=== PATIENT | female | born 1955 | race Caucasian/White ===

== ENCOUNTER 2019-03-16 11:34 | Emergency (ER) | payer OTHER ==
--- NOTE | 2019-03-16 12:24 | EDPHY ---
H & P Time Seen by Provider: 03/16/19 11:57 HPI/ROS: CHIEF COMPLAINT: Dizziness HISTORY OF PRESENT ILLNESS: 63-year-old woman presents with 3 episodes of dizziness since this past weekend on Thursday. She was helping her daughter at her daughter's esthetic clinic and sitting at a desk on Thursday when suddenly everything started spinning, she fell off the chair and felt like she might have "blacked out" for a second or 2 and injured her right side of her face. No headache or neck pain. No seizure activity. She felt better on Thursday and Thursday and then yesterday evening at her daughter's esthetic clinic which she bent over to plug in some left ups she had same sensation of sudden spinning and she fell on her left side this time. There is a 2nd episode later that evening at home each 1 lasted about 30 min and associated with nausea and some vomiting. Today she has not had any recurrent symptoms. She feels little bit weaker. Denies headache or neck pain or being off balance or any trouble with speech thought strength or sensation. REVIEW OF SYSTEMS: Eye: no change in vision ENT: no sore throat, has had ringing in her left ear for the several years now unchanged Cardiac: No chest pain Pulmonary: no cough or SOB Abdomen: No diarrhea or abdominal pain Musculoskeletal: No neck pain Skin: no rash Neuro: no headache Constitutional: no fever : no urinary symptoms A comprehensive 10 point review of systems is otherwise negative aside from elements mentioned in the history of present illness. PAST MEDICAL HISTORY: Includes diabetes and tonsillectomy Social history: Lives in [facility] here visiting her daughter General Appearance: Alert and conversant, cooperative. Eyes: No scleral icterus. Extraocular motion intact and no nystagmus now. ENT, Mouth: Normal mucous membranes. No tongue laceration or abrasion and normal tympanic membranes. Respiratory: Normal respiratory effort, breath sounds equal, lungs are clear to auscultation. Cardiovascular: Regular rate and rhythm. Gastrointestinal: Abdomen is soft and non tender. Neurological: Alert, face symmetric, normal motor and sensory in extremities. Normal [id number] bilaterally and no pronator drift, speech fluent, ambulatory. Not tremulous. Skin: Abrasion to the right forehead. She does have some skin changes below her chin from a facial treatment given to her by her daughter over the weekend. Musculoskeletal: No peripheral edema. No leg tenderness. Psychiatric: Not agitated. Emergency Department course/MDM: Likely acute peripheral vertigo episodes which are currently not symptomatic. CBC and chemistry because of metformin, EKG. Patient was concerned about lactic acidosis on metformin, I think that is less likely. I think malignant dysrhythmia or seizure or vascular dissection or cerebellar stroke are all unlikely. Normal EKG, not acidotic. Patient was warned to avoid driving or other potentially risk activities until she has been asymptomatic for several days. Does not have a severe headache, does not have clinical signs of skull fracture. Neurologic exam is normal, not anticoagulated. I think it is unlikely she is having intracranial bleed or skull fracture, subdural or epidural. Smoking Status: Former smoker Constitutional: Initial Vital Signs Temperature (C) 36.8 C 03/16/19 11:45 Heart Rate 69 03/16/19 11:45 Respiratory Rate 16 03/16/19 11:45 Blood Pressure 159/74 H 03/16/19 11:45 O2 Sat (%) 95 03/16/19 11:45 O2 Delivery Mode Room Air Allergies/Adverse Reactions: No Known Allergies Allergy (Unverified 03/16/19 11:44) Home Medications: Medication Instructions Recorded Metformin HCl 03/16/19 Multivitamin 03/16/19 Medical Decision Making - Diagnostics EKG Interpretation: 12-lead EKG interpreted by me; official reading is in computer system. My interpretation is sinus rhythm rate 68 with low precordial voltage otherwise negative Differential Diagnosis: Differential diagnosis considered for dizziness including but not limited to peripheral and central causes of vertigo, orthostatic causes including dehydration, and blood loss. - Data Points Laboratory Results: Laboratory Results 03/16/19 12:50 03/16/19 12:50 03/16/19 03/16/19 12:50 12:50 WBC 8.61 10^3/uL 10^3/uL (3.80-9.50) RBC 5.08 10^6/uL 10^6/uL (4.18-5.33) Hgb 14.3 g/dL g/dL (12.6-16.3) Hct 43.0 % % (38.0-47.0) MCV 84.6 fL fL (81.5-99.8) MCH 28.1 pg pg (27.9-34.1) MCHC 33.3 g/dL g/dL (32.4-36.7) RDW 13.2 % % (11.5-15.2) Plt Count 267 10^3/uL 10^3/uL (150-400) MPV 9.8 fL fL (8.7-11.7) Neut % (Auto) 65.4 % % (39.3-74.2) Lymph % (Auto) 25.1 % % (15.0-45.0) Rosebud % (Auto) 6.6 % % (4.5-13.0) Eos % (Auto) 2.0 % % (0.6-7.6) Baso % (Auto) 0.6 % % (0.3-1.7) Nucleat RBC Rel Count 0.0 % % (0.0-0.2) Absolute Neuts (auto) 5.63 10^3/uL 10^3/uL (1.70-6.50) Absolute Lymphs (auto) 2.16 10^3/uL 10^3/uL (1.00-3.00) Absolute Monos (auto) 0.57 10^3/uL 10^3/uL (0.30-0.80) Absolute Eos (auto) 0.17 10^3/uL 10^3/uL (0.03-0.40) Absolute Basos (auto) 0.05 10^3/uL 10^3/uL (0.02-0.10) Absolute Nucleated RBC 0.00 10^3/uL 10^3/uL (0-0.01) Immature Gran % 0.3 % % (0.0-1.1) Immature Gran # 0.03 10^3/uL 10^3/uL (0.00-0.10) Sodium 140 mEq/L mEq/L (135-145) Potassium 4.2 mEq/L mEq/L (3.5-5.2) Chloride 103 mEq/L mEq/L (97-110) Carbon Dioxide 25 mEq/l mEq/l (22-31) Anion Gap 12 mEq/L mEq/L (6-14) BUN 12 mg/dL mg/dL (7-23) Creatinine 0.6 mg/dL mg/dL (0.6-1.0) Estimated GFR > 60 Glucose 134 mg/dL H mg/dL (70-100) Calcium 9.6 mg/dL mg/dL (8.5-10.4) Departure - Departure Disposition: Home, Routine, Self-Care Clinical Impression: Vertigo Condition: Good Instructions: Vertigo (ED) Additional Instructions: Return if you get worsening or more severe symptoms. I think it is reasonable for you to fly if you continue to be asymptomatic between now and your travel time. Referrals: MD SONY [Other] - As per Instructions Christine Danielle MD [Medical Doctor] - As per Instructions
--- NOTE | 2019-03-16 12:34 | CPEKG ---
Test Reason : OPEN Blood Pressure : / mmHG Vent. Rate : 068 BPM Atrial Rate : 068 BPM P-R Int : 193 ms QRS Dur : 082 ms QT Int : 423 ms P-R-T Axes : 057 018 072 degrees QTc Int : 450 ms Sinus rhythm Low voltage, precordial leads Confirmed by Porfirio Alvarado ([id number]) on 03/16/2019 12:33:54 PM Referred By: Porfirio Alvarado Confirmed By:Porfirio Alvarado
[2019-03-16 13:08] LABS: PLATELET COUNT 267 10^3/uL (150-400)
[2019-03-16 13:50] VITALS: BP 158/61
== END 2019-03-16 13:50 | disposition home or self-care (01) ==
LOC: EDBD 11:34
DX: R42 Dizziness and giddiness (principal)

== ENCOUNTER 2019-03-21 17:19 | Emergency (ER) | payer OTHER ==
[2019-03-21] MEDS ORDERED: METOCLOPRAMIDE 10 MG/2 ML VIAL IVP ONE (18:23)
[2019-03-21] MEDS ORDERED: KETOROLAC 30 MG/1 ML SDV IVP ONE (18:23)
[2019-03-21] MEDS ORDERED: DEXAMETHASONE 10 MG/ML VIAL IVP ONE (18:23)
[2019-03-21] MEDS ORDERED: NS 1,000 ML IV ONE (18:23)
--- NOTE | 2019-03-21 18:30 | EDPHY ---
H & P Stated Complaint: Pt seen for falls and vertigo last week. C/o vertigo and nausea today. Time Seen by Provider: 03/21/19 18:11 HPI/ROS: CHIEF COMPLAINT: Vertigo HISTORY OF PRESENT ILLNESS: Patient is a 63-year-old female who is been complaining of intermittent vertigo for the last week. She states that it has happened to her 3 times and is very intense and unusually last for about 30 min. She has fallen twice. She was seen here last week in had an EKG and lab work which are reassuring. She was diagnosed with peripheral vertigo. She states that her primary doctor was concerned about acidosis from metformin so told her to stop it. She has stopped it for the last 2 days. Today she had another episode of intense vertigo that persisted for about 30 min and has since resolved but now she is having headache which she has not had after the previous episodes. No vision or hearing changes. No trauma. No fever. No focal weakness. She did complain of full body tingling during the episode but admits that she may have been hyperventilating. She was nauseous but did not vomit. No syncope. No fall. Severity: Moderate Modifying factors: None REVIEW OF SYSTEMS: Constitutional: denies: chills, fever, recent illness, recent injury EENTM: denies: blurred vision, double vision, nose congestion Respiratory: denies: cough, shortness of breath Cardiac: denies: chest pain, irregular heart rate, lightheadedness, palpitations Gastrointestinal/Abdominal: denies: abdominal pain, diarrhea, nausea, vomiting, blood streaked stools Genitourinary: denies: dysuria, frequency, hematuria, pain Musculoskeletal: denies: joint pain, muscle pain Skin: denies: lesions, rash, jaundice, bruising Neurological: See HPI denies: headache, numbness, weakness Hematologic/Lymphatic: denies: blood clots, easy bleeding, easy bruising Immunologic/allergic: denies: HIV/AIDS, transplant 10 systems reviewed and negative except as noted EXAM: GENERAL: Well-appearing, well-nourished and in no acute distress. HEAD: Atraumatic, normocephalic. EYES: Pupils equal round and reactive to light, extraocular movements intact, sclera anicteric, conjunctiva are normal. No nystagmus ENT: TMs normal, nares patent, oropharynx clear without exudates. Moist mucous membranes. NECK: Normal range of motion, supple without lymphadenopathy or JVD. LUNGS: Breath sounds clear to auscultation bilaterally and equal. No wheezes rales or rhonchi. HEART: Regular rate and rhythm without murmurs, rubs or gallops. ABDOMEN: Soft, nontender, normoactive bowel sounds. No guarding, no rebound. No masses appreciated. BACK: No CVA tenderness, no spinal tenderness, step-offs or deformities EXTREMITIES: Normal range of motion, no pitting or edema. No clubbing or cyanosis. NEUROLOGICAL: Cranial nerves II through XII grossly intact. Normal speech, normal gait. 5/5 strength, normal movement in all extremities, normal sensation , normal reflexes PSYCH: Normal mood, normal affect. SKIN: Warm, dry, normal turgor, no visible rashes or lesions. Source: Patient Exam Limitations: No limitations - Personal History Current Tetanus/Diphtheria Vaccine: No - Medical/Surgical History Hx Asthma: No Hx Chronic Respiratory Disease: No Hx Diabetes: No Hx Cardiac Disease: No Hx Renal Disease: No Hx Cirrhosis: No Hx Alcoholism: No Hx HIV/AIDS: No Hx Splenectomy or Spleen Trauma: No Other PMH: DM, tonsilectomy - Family History Significant Family History: No pertinent family hx - Social History Smoking Status: Former smoker Alcohol Use: Sober Drug Use: None Constitutional: Initial Vital Signs Temperature (C) 37.0 C 03/21/19 17:28 Heart Rate 84 03/21/19 17:28 Respiratory Rate 16 03/21/19 17:28 Blood Pressure 181/71 H 03/21/19 17:28 O2 Sat (%) 95 03/21/19 17:28 O2 Delivery Mode Room Air Allergies/Adverse Reactions: No Known Allergies Allergy (Verified 03/21/19 17:28) Home Medications: Medication Instructions Recorded Metformin HCl 03/16/19 Multivitamin 03/16/19 Metoclopramide [Reglan 10 mg tab 10 mg PO BID PRN #10 tab 03/21/19 (RX)] Medical Decision Making ED Course/Re-evaluation: 9:00 p.m. We discussed the MRI and lab results. Patient is reassured. I encouraged her to restart her metformin. She feels completely asymptomatic at this time. She is asking for prescription for Reglan. Discussed follow-up with ENT. Discussed Rebekah maneuver as well. Discussed indications for returning. Differential Diagnosis: Partial list of the Differential diagnosis considered include but were not limited to; benign positional vertigo, neuritis and although unlikely based on the history and physical exam, I also considered abscess, CVA, hemorrhage, dissection, thrombus. I discussed these differential diagnoses and the plan with the patient as well as the usual and expected course. The patient understands that the diagnosis is provisional and that in medicine we are not always correct and that further workup is often warranted. Usual and customary warnings were given. All of the patient's questions were answered. The patient was instructed to return to the emergency department should the symptoms at all worsen or return, otherwise to followup with the physician as we discussed. - Data Points Laboratory Results: Laboratory Results 03/21/19 19:05 03/21/19 19:05 Medications Given: Discontinued Medications Dexamethasone (Decadron Injection) 10 mg IVP EDNOW ONE Stop: 03/21/19 18:24 Last Admin: 03/21/19 19:13 Dose: Not Given Sodium Chloride (Ns) 1,000 mls @ 0 mls/hr IV ONCE ONE; Wide Open PRN Reason: Protocol Stop: 03/21/19 18:24 Last Admin: 03/21/19 19:12 Dose: 1,000 mls Ketorolac Tromethamine (Toradol) 15 mg IVP EDNOW ONE Stop: 03/21/19 18:24 Last Admin: 03/21/19 19:12 Dose: 15 mg Metoclopramide HCl (Reglan Injection) 10 mg IVP EDNOW ONE Stop: 03/21/19 18:24 Last Admin: 03/21/19 19:12 Dose: 10 mg Departure - Departure Disposition: Home, Routine, Self-Care Clinical Impression: Benign positional vertigo Qualifiers: Laterality: unspecified laterality Qualified Code(s): H81.10 - Benign paroxysmal vertigo, unspecified ear Condition: Fair Instructions: Benign Paroxysmal Positional Vertigo (ED) Referrals: SONY,UNKNOWN [Other] - As per Instructions Prescriptions: Metoclopramide [Reglan 10 mg tab (RX)] 10 mg PO BID PRN #10 tab PRN Reason: Headache
[2019-03-21 19:18] LABS: PLATELET COUNT 240 10^3/uL (150-400)
[2019-03-21 22:16] VITALS: BP 146/72
== END 2019-03-21 21:17 | disposition home or self-care (01) ==
DX: H81.10 Benign paroxysmal vertigo, unspecified ear (principal); E86.9 Volume depletion, unspecified; Z87.891 Personal history of nicotine dependence
CPT/HCPCS: 70551-PN; 96374; J1100; J1885; J2765